=== PATIENT | male | born 1930 | race Caucasian/White ===

== ENCOUNTER 2016-08-20 01:16 | Inpatient (IN) | payer MEDICARE, OTHER ==
[2016-08-20] MEDS ORDERED: Albuterol/Ipratropium 3.0-0.5 MG/3 ML Neb Soln NEB ONE (01:40)
[2016-08-20] MEDS ORDERED: methylPREDNISolone Sodium Succinate 125 MG/2 ML SDV IVPUSH ONE (01:41)
[2016-08-20] MEDS ORDERED: Albuterol 0.083% 2.5 MG/3 ML Neb Soln NEB STA (02:14)
[2016-08-20] MEDS ORDERED: Albuterol 0.083% 2.5 MG/3 ML Neb Soln ONE (02:18)
[2016-08-20] MEDS ORDERED: Furosemide 40 MG/4 ML VIAL IVPUSH ONE (02:42)
[2016-08-20] MEDS ORDERED: Furosemide 40 MG/4 ML VIAL ONE (02:45)
--- NOTE | 2016-08-20 02:45 | EDM.PDOC ---
ED HPI GENERAL MEDICAL PROBLEM - General Chief Complaint: Respiratory Problem Stated Complaint: [facility] Time Seen by Provider: 08/20/16 01:36 Source of Information: Reports: Patient, EMS, Correction Records, RN Notes Reviewed History Limitations: Reports: Respiratory Distress - History of Present Illness INITIAL COMMENTS - FREE TEXT/NARRATIVE: The history is limited, as the patient is in respiratory distress and not able to communicate. The assisted living papers indicate "Decreased SpO2, increased BP, Fall". Report from EMS is that the patient was found on the floor. His records indicate that he has numerous medical problems, including a history of CHF and COPD. - Related Data Allergies Allergy/AdvReac Type Severity Reaction Status Date / Time No Known Allergies Allergy Verified 08/20/16 01:31 Home Meds: Home Meds Allopurinol [Zyloprim] 300 mg PO DAILY 08/20/16 [History] Aspirin [Adult Low Dose Aspirin EC] 81 mg PO DAILY 08/20/16 [History] Calcitriol [Rocaltrol] 0.25 mcg PO DAILY 08/20/16 [History] Canagliflozin [Invokana] 150 mg PO DAILY 08/20/16 [History] Carvedilol [Coreg] 12.5 mg PO BID 08/20/16 [History] Finasteride [Proscar] 5 mg PO DAILY 08/20/16 [History] Furosemide [Lasix] 40 mg PO DAILY 08/20/16 [History] Insulin NPH/Insulin Reg,Human [HumuLIN 70-30 Pen] 14 units SUBCUT BEDTIME [History] Insulin NPH/Insulin Reg,Human [HumuLIN 70-30 Pen] 22 units SUBCUT DAILY [History] Losartan [Cozaar] 50 mg PO DAILY 08/20/16 [History] Simvastatin 40 mg PO DAILY 08/20/16 [History] Past Medical History HEENT History: Reports: Cataract, Impaired Vision Cardiovascular History: Reports: Heart Failure, High Cholesterol, Other (See Below) (Cerebrovascular disease) Respiratory History: Reports: COPD, Sleep Apnea (nightly COPD) Genitourinary History: Reports: BPH, Chronic Renal Insuffiency Musculoskeletal History: Reports: Gout Neurological History: Reports: Neuropathy, Diabetic Psychiatric History: 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 Endocrine/Metabolic History: Reports: Hyperparathyroidism, IDDM, Obesity/BMI 30+ Social & Family History - Tobacco Use Smoking Status *Q: Former Smoker Used Tobacco, but Quit: No - Caffeine Use Caffeine Use: Reports: Coffee, Soda - Alcohol Use Alcohol Use History: No - Recreational Drug Use Recreational Drug Use: No - Living Situation & Occupation Living situation: Reports: , Assisted Living ([place]) Occupation: Retired ED ROS GENERAL - Review of Systems Review Of Systems: See Below Constitutional: Reports: No Symptoms HEENT: Reports: No Symptoms Respiratory: Reports: No Symptoms Cardiovascular: Reports: No Symptoms Endocrine: Reports: No Symptoms GI/Abdominal: Reports: No Symptoms : Reports: No Symptoms Musculoskeletal: Reports: No Symptoms Skin: Reports: No Symptoms Neurological: Reports: No Symptoms Psychiatric: Reports: No Symptoms Hematologic/Lymphatic: Reports: No Symptoms Immunologic: Reports: No Symptoms ED EXAM, GENERAL - Physical Exam Exam: See Below Exam Limited By: Respiratory Distress General Appearance: Alert, WD/WN, Moderate Distress Eye Exam: Bilateral Eye: Other (Edema about both eyes) Ears: Normal External Exam, Hearing Grossly Normal Ear Exam: Bilateral Ear: Auricle Normal Nose: Normal Inspection, No Blood Throat/Mouth: Normal Inspection, Normal Lips Head: Atraumatic, Normocephalic Neck: Normal Inspection Respiratory/Chest: No Accessory Muscle Use, Respiratory Distress (Tachypneic in the mid-40s), Decreased Breath Sounds. No: Crackles, Rhonchi, Wheezing Cardiovascular: Normal Peripheral Pulses, No Gallop, No JVD, No Murmur, No Rub, Tachycardia (regular) Peripheral Pulses: 4+: Radial (L), Radial (R) GI/Abdominal: Normal Bowel Sounds, Soft, Non-Tender, No Organomegaly, No Distention, No Abnormal Bruit, No Mass, Other (Obese) (Male) Exam: Deferred Rectal (Males) Exam: Deferred Back Exam: Normal Inspection Extremities: Normal Capillary Refill, Other (3+ pitting edema pretibially bilaterally, with hyperpigmentation consistent with chronic venous stasis) Neurological: Alert, Other (Unable to adequately assess, given the patient's respiratory difficulty, but no obvious focal deficits noted) Psychiatric: Other Skin Exam: Intact, No Rash, Cool, Diaphoretic, Ecchymosis EKG INTERPRETATION EKG Date: 08/20/16 Time: 02:09 Rhythm: other (Sinus tachycardia) Rate (beats/min): 108 [place]: normal P-wave: absent (1st degree AV block) QRS: wide ST-T: other (J-point elevation in V2, V3, V4) QT: prolonged (QTc 522 ms) Course - Vital Signs Last Recorded V/S: Last Vital Signs Temp 37.0 C 08/20/16 01:19 Pulse 114 H 08/20/16 01:19 Resp 21 H 08/20/16 01:19 BP 150/101 H 08/20/16 01:19 Pulse Ox 90 L 08/20/16 02:18 - Orders/Labs/Meds Orders: Active Orders 24 hr Category Date Time Status BIPAP Adult [RT BiPAP/CPAP] [RC] ASDIRECTED Care 08/20/16 02:47 Active EKG Documentation Completion [RC] STAT Care 08/20/16 01:45 Active Farias Catheter Insertion [Insert Urinary Catheter] [OM. Care 08/20/16 03:00 Ordered PC] Q24H RT Aerosol Therapy [RC] ASDIRECTED Care 08/20/16 01:41 Active RT Aerosol Therapy [RC] ASDIRECTED Care 08/20/16 02:15 Active Urinary Catheter Assessment [RC] ASDIRECTED Care 08/20/16 02:46 Active Chest 1V Frontal [CR] Stat Exams 08/20/16 01:45 Taken CBC W/O DIFF,HEMOGRAM [HEME] MOTH@0700 Lab 08/23/16 07:00 Ordered CBC W/O DIFF,HEMOGRAM [HEME] MOTH@0700 Lab 08/26/16 07:00 Ordered CBC W/O DIFF,HEMOGRAM [HEME] MOTH@0700 Lab 08/30/16 07:00 Ordered CBC W/O DIFF,HEMOGRAM [HEME] MOTH@0700 Lab 09/02/16 07:00 Ordered CBC W/O DIFF,HEMOGRAM [HEME] MOTH@0700 Lab 09/06/16 07:00 Ordered CBC W/O DIFF,HEMOGRAM [HEME] MOTH@0700 Lab 09/09/16 07:00 Ordered CULTURE BLOOD [BC] Stat Lab 08/20/16 03:39 Received CULTURE BLOOD [BC] Stat Lab 08/20/16 03:51 Received Labs: Laboratory Tests 08/20/16 08/20/16 08/20/16 Range/Units 01:45 01:54 01:54 WBC 17.10 H (4.23-9.07) K/mm3 RBC 7.38 H (4.63-6.08) M/mm3 Hgb 20.9 H (13.7-17.5) gm/L Hct 65.6 H (40.1-51.0) % MCV 88.9 (79.0-92.2) fl MCH 28.3 (25.7-32.2) pg MCHC 31.9 L (32.2-35.5) g/dl RDW Std Deviation 56.6 H (35.1-43.9) fL Plt Count 133 L (163-337) K/mm3 MPV 9.9 (9.4-12.3) fl Neutrophils % (Manual) 88 H (40-60) % Band Neutrophils % 9 (0-10) % Lymphocytes % (Manual) 2 L (20-40) % Atypical Lymphs % 0 % Monocytes % (Manual) 1 L (2-10) % Eosinophils % (Manual) 0 L (0.8-7.0) % Basophils % (Manual) 0 L (0.2-1.2) Metamyelocytes % 0 Promyelocytes % 0 Blast Cells % 0 Plasma Cell % (Manual) 0 WBC Morphology Comment [employer] Platelet Estimate Adequate Anisocytosis 1+ slight RBC Morph Comment Not Reportable PT (8.0-13.0) SECONDS INR APTT (22-36) SECONDS D-Dimer, Quantitative (0.19-0.59) mg/L Puncture Site Rt radial ABG pH 7.24 L (7.35-7.45) ABG pCO2 64.2 H (35.0-45.0) mmHg ABG pO2 69.0 L (80.0-100.0) mmHg ABG HCO3 26.7 H (22.0-26.0) meq/L ABG O2 Saturation 91.2 L (96.0-97.0) % ABG Base Excess -3.2 L (-2-2.0) Pratik Test Positive A-a Gradient 427 mmHg O2 Delivery Device Nonrebreather Oxygen Flow Rate 10.0 FiO2 90.00 (21.00-100.00) % Tidal Volume cc Sodium 140 (136-145) mEq/L Potassium 4.3 (3.5-5.1) mEq/L Chloride 103 (98-107) mEq/L Carbon Dioxide 26 (21-32) mEq/L Anion Gap 15.3 H (5-15) BUN 44 H (7-18) mg/dL Creatinine 1.9 H (0.7-1.3) mg/dL Est Cr Clr Drug Dosing 21.55 mL/min Estimated GFR (MDRD) 34 (>60) mL/min BUN/Creatinine Ratio 23.2 H (14-18) Glucose 181 H (83-115) mg/dL Lactic Acid (0.4-2.0) mmol/L Calcium 9.6 (8.5-10.1) mg/dL Magnesium 2.1 (1.8-2.4) mg/dl Total Bilirubin 0.8 (0.2-1.0) mg/dL AST 40 H (15-37) U/L ALT 32 (16-63) U/L Alkaline Phosphatase 93 (46-116) U/L Troponin I 1.130 H* (0.00-0.056) ng/mL B-Natriuretic Peptide (0-100) pg/mL Total Protein 7.3 (6.4-8.2) g/dl Albumin 3.6 (3.4-5.0) g/dl Globulin 3.7 gm/dL Albumin/Globulin Ratio 1.0 (1-2) Urine Color (Yellow) Urine Appearance (Clear) Urine pH (5.0-8.0) Ur Specific [place] (1.005-1.030) Urine Protein (Negative) Urine Glucose (UA) (Negative) Urine Ketones (Negative) Urine Occult Blood (Negative) Urine Nitrite (Negative) Urine Bilirubin (Negative) Urine Urobilinogen (0.2-1.0) Ur Leukocyte Esterase (Negative) Urine RBC (0-5) /hpf Urine WBC (0-5) /hpf Ur Epithelial Cells Ur Squamous Epith Cells (0-5) /hpf Urine Bacteria (FEW) /hpf Urine Mucus (FEW) /hpf 08/20/16 08/20/16 08/20/16 Range/Units 01:54 01:54 01:54 WBC (4.23-9.07) K/mm3 RBC (4.63-6.08) M/mm3 Hgb (13.7-17.5) gm/L Hct (40.1-51.0) % MCV (79.0-92.2) fl MCH (25.7-32.2) pg MCHC (32.2-35.5) g/dl RDW Std Deviation (35.1-43.9) fL Plt Count (163-337) K/mm3 MPV (9.4-12.3) fl Neutrophils % (Manual) (40-60) % Band Neutrophils % (0-10) % Lymphocytes % (Manual) (20-40) % Atypical Lymphs % % Monocytes % (Manual) (2-10) % Eosinophils % (Manual) (0.8-7.0) % Basophils % (Manual) (0.2-1.2) Metamyelocytes % Promyelocytes % Blast Cells % Plasma Cell % (Manual) WBC Morphology Comment Platelet Estimate Anisocytosis RBC Morph Comment PT 14.7 H (8.0-13.0) SECONDS INR 1.32 APTT 28 (22-36) SECONDS D-Dimer, Quantitative 5.74 H (0.19-0.59) mg/L Puncture Site ABG pH (7.35-7.45) ABG pCO2 (35.0-45.0) mmHg ABG pO2 (80.0-100.0) mmHg ABG HCO3 (22.0-26.0) meq/L ABG O2 Saturation (96.0-97.0) % ABG Base Excess (-2-2.0) Pratik Test A-a Gradient mmHg O2 Delivery Device Oxygen Flow Rate FiO2 (21.00-100.00) % Tidal Volume cc Sodium (136-145) mEq/L Potassium (3.5-5.1) mEq/L Chloride (98-107) mEq/L Carbon Dioxide (21-32) mEq/L Anion Gap (5-15) BUN (7-18) mg/dL Creatinine (0.7-1.3) mg/dL Est Cr Clr Drug Dosing mL/min Estimated GFR (MDRD) (>60) mL/min BUN/Creatinine Ratio (14-18) Glucose (83-115) mg/dL Lactic Acid 2.4 H (0.4-2.0) mmol/L Calcium (8.5-10.1) mg/dL Magnesium (1.8-2.4) mg/dl Total Bilirubin (0.2-1.0) mg/dL AST (15-37) U/L ALT (16-63) U/L Alkaline Phosphatase (46-116) U/L Troponin I (0.00-0.056) ng/mL B-Natriuretic Peptide 485 H (0-100) pg/mL Total Protein (6.4-8.2) g/dl Albumin (3.4-5.0) g/dl Globulin gm/dL Albumin/Globulin Ratio (1-2) Urine Color (Yellow) Urine Appearance (Clear) Urine pH (5.0-8.0) Ur Specific [place] (1.005-1.030) Urine Protein (Negative) Urine Glucose (UA) (Negative) Urine Ketones (Negative) Urine Occult Blood (Negative) Urine Nitrite (Negative) Urine Bilirubin (Negative) Urine Urobilinogen (0.2-1.0) Ur Leukocyte Esterase (Negative) Urine RBC (0-5) /hpf Urine WBC (0-5) /hpf Ur Epithelial Cells Ur Squamous Epith Cells (0-5) /hpf Urine Bacteria (FEW) /hpf Urine Mucus (FEW) /hpf 08/20/16 08/20/16 Range/Units 02:54 03:34 WBC (4.23-9.07) K/mm3 RBC (4.63-6.08) M/mm3 Hgb (13.7-17.5) gm/L Hct (40.1-51.0) % MCV (79.0-92.2) fl MCH (25.7-32.2) pg MCHC (32.2-35.5) g/dl RDW Std Deviation (35.1-43.9) fL Plt Count (163-337) K/mm3 MPV (9.4-12.3) fl Neutrophils % (Manual) (40-60) % Band Neutrophils % (0-10) % Lymphocytes % (Manual) (20-40) % Atypical Lymphs % % Monocytes % (Manual) (2-10) % Eosinophils % (Manual) (0.8-7.0) % Basophils % (Manual) (0.2-1.2) Metamyelocytes % Promyelocytes % Blast Cells % Plasma Cell % (Manual) WBC Morphology Comment Platelet Estimate Anisocytosis RBC Morph Comment PT (8.0-13.0) SECONDS INR APTT (22-36) SECONDS D-Dimer, Quantitative (0.19-0.59) mg/L Puncture Site Rt radial ABG pH 7.29 L (7.35-7.45) ABG pCO2 54.2 H (35.0-45.0) mmHg ABG pO2 80.0 (80.0-100.0) mmHg ABG HCO3 25.4 (22.0-26.0) meq/L ABG O2 Saturation 95.6 L (96.0-97.0) % ABG Base Excess -2.4 L (-2-2.0) Pratik Test Positive A-a Gradient 493 mmHg O2 Delivery Device Bipap 10/4 Oxygen Flow Rate FiO2 100.00 (21.00-100.00) % Tidal Volume 390.0 cc Sodium (136-145) mEq/L Potassium (3.5-5.1) mEq/L Chloride (98-107) mEq/L Carbon Dioxide (21-32) mEq/L Anion Gap (5-15) BUN (7-18) mg/dL Creatinine (0.7-1.3) mg/dL Est Cr Clr Drug Dosing mL/min Estimated GFR (MDRD) (>60) mL/min BUN/Creatinine Ratio (14-18) Glucose (83-115) mg/dL Lactic Acid (0.4-2.0) mmol/L Calcium (8.5-10.1) mg/dL Magnesium (1.8-2.4) mg/dl Total Bilirubin (0.2-1.0) mg/dL AST (15-37) U/L ALT (16-63) U/L Alkaline Phosphatase (46-116) U/L Troponin I (0.00-0.056) ng/mL B-Natriuretic Peptide (0-100) pg/mL Total Protein (6.4-8.2) g/dl Albumin (3.4-5.0) g/dl Globulin gm/dL Albumin/Globulin Ratio (1-2) Urine Color Yellow (Yellow) Urine Appearance Clear (Clear) Urine pH 5.5 (5.0-8.0) Ur Specific [place] 1.015 (1.005-1.030) Urine Protein 2+ H (Negative) Urine Glucose (UA) 2+ H (Negative) Urine Ketones Negative (Negative) Urine Occult Blood Negative (Negative) Urine Nitrite Negative (Negative) Urine Bilirubin Negative (Negative) Urine Urobilinogen 0.2 (0.2-1.0) Ur Leukocyte Esterase Negative (Negative) Urine RBC Not seen (0-5) /hpf Urine WBC 0-5 (0-5) /hpf Ur Epithelial Cells Not Reportable Ur Squamous Epith Cells 0-5 (0-5) /hpf Urine Bacteria Not seen (FEW) /hpf Urine Mucus Few (FEW) /hpf Meds: Medications Discontinued Medications Generic Name Dose Route Start Last Admin Trade Name Freq PRN Reason Stop Dose Admin Albuterol 2.5 mg 08/20/16 02:14 08/20/16 02:17 Proventil Neb Soln NEB 08/20/16 02:15 2.5 mg ONETIME STA Administration Albuterol Confirm 08/20/16 02:18 08/20/16 03:01 Proventil Neb Soln Administered 08/20/16 02:19 Not Given Dose 2.5 mg .ROUTE .STK-MED ONE Albuterol/Ipratropium 3 ml 08/20/16 01:40 08/20/16 01:50 Duoneb 3.0-0.5 Mg/3 Ml [facility] 08/20/16 01:41 3 ml ONETIME ONE Administration Enoxaparin Sodium 100 mg 08/20/16 02:52 08/20/16 03:01 Lovenox SUBCUT 08/20/16 02:53 100 mg ONETIME ONE Administration Furosemide 40 mg 08/20/16 02:42 08/20/16 02:44 Lasix IVPUSH 08/20/16 02:43 40 mg NOW ONE Administration Furosemide Confirm 08/20/16 02:45 08/20/16 02:58 Lasix Administered 08/20/16 02:46 Not Given Dose 40 mg .ROUTE .STK-MED ONE Levofloxacin/Dextrose 500 mg/ 100 mls @ 100 mls/hr 08/20/16 03:06 08/20/16 03 :46 Premix IV 08/20/16 04:05 100 mls/hr ONETIME ONE Administration Methylprednisolone Sodium Succinate 125 mg 08/20/16 01:41 08/20/16 01:45 Solu-Medrol IVPUSH 08/20/16 01:42 125 mg ONETIME ONE Administration - Radiology Interpretation Free Text/Narrative:: Portable chest radiograph reviewed. There is cardiomegaly. There is pulmonary vascular congestion, consistent with compensated CHF. No pleural effusions seen. No focal infiltrate, although cannot be excluded. No pneumothorax. Formal read per the Radiologist pending. - Re-Assessments/Exams Free Text/Narrative Re-Assessment/Exam: 08/20/16 02:44 The patient has received a DuoNeb followed by an albuterol neb treatment and is on a nonrebreather, however, his oxygen saturation is still in the mid-80s and he is still tachypneic in the mid-40s. The patient's portable chest radiograph suggests CHF exacerbation. I have ordered IV Lasix and we will try BiPAP to see if we can avoid intubation. 08/20/16 02:53 The patient's troponin has returned elevated at 1.130, and his D-dimer elevated at 5.74. The patient has renal dysfunction, with a creatinine of 1.9, which is a relative contraindication for a CT angiogram, but, additionally, I don't believe the patient is physically capable of lying flat for a CT angiogram at this time, as he is still in respiratory extremis. I have therefore ordered Lovenox 100 mg SQ. 08/20/16 02:58 The patient's BNP is only mildly elevated at 485, not consistent with substantial CHF decompensation. We will see how well the patient does on the BiPAP, however, it if he does not improve fairly quickly, I will need to intubate him. In the meantime, I will start the patient on IV Levaquin, as I cannot exclude pneumonia. 08/20/16 03:33 The patient's daughter has come to the ED. The patient's case was discussed at length with her. She is not aware of any recent illnesses in the patient. We' re in agreement that we would like to avoid intubating the patient, if at all possible. I will check an ABG to see if he is making progress on the BiPAP. 08/20/16 04:20 The patient's repeat ABG shows modest improvement. Again, given that we are reluctant to intubate the patient, I believe that as long as he continues to make improvement, we can avoid intubation. 08/20/16 04:[address] Gurrola at 04:21. He agrees to admit the patient to the ICU. I will write bridge orders. Departure - Departure Time of Disposition: 04:24 Disposition: DC/Tfer to Acute Hospital 02 Condition: serious Clinical Impression: Respiratory distress, Leukocytosis, Respiratory acidosis, Hypoxemia, Elevated troponin, Elevated d-dimer, Lactic acidosis - Discharge Information - My Orders Last 24 Hours: My Active Orders 08/20/16 01:41 RT Aerosol Therapy [RC] ASDIRECTED 08/20/16 01:45 EKG Documentation Completion [RC] STAT Chest 1V Frontal [CR] Stat 08/20/16 02:15 RT Aerosol Therapy [RC] ASDIRECTED 08/20/16 02:46 Urinary Catheter Assessment [RC] ASDIRECTED 08/20/16 02:47 BIPAP Adult [RT BiPAP/CPAP] [RC] ASDIRECTED 08/20/16 03:00 Farias Catheter Insertion [Insert Urinary Catheter] [OM.PC] Q24H 08/20/16 03:39 CULTURE BLOOD [BC] Stat 08/20/16 03:51 CULTURE BLOOD [BC] Stat 08/23/16 07:00 CBC W/O DIFF,HEMOGRAM [HEME] MOTH@0700 08/26/16 07:00 CBC W/O DIFF,HEMOGRAM [HEME] MOTH@0700 08/30/16 07:00 CBC W/O DIFF,HEMOGRAM [HEME] MOTH@0700 09/02/16 07:00 CBC W/O DIFF,HEMOGRAM [HEME] MOTH@0700 09/06/16 07:00 CBC W/O DIFF,HEMOGRAM [HEME] MOTH@0700 09/09/16 07:00 CBC W/O DIFF,HEMOGRAM [HEME] MOTH@0700 - Assessment/Plan Last 24 Hours: My Active Orders 08/20/16 01:41 RT Aerosol Therapy [RC] ASDIRECTED 08/20/16 01:45 EKG Documentation Completion [RC] STAT Chest 1V Frontal [CR] Stat 08/20/16 02:15 RT Aerosol Therapy [RC] ASDIRECTED 08/20/16 02:46 Urinary Catheter Assessment [RC] ASDIRECTED 08/20/16 02:47 BIPAP Adult [RT BiPAP/CPAP] [RC] ASDIRECTED 08/20/16 03:00 Farias Catheter Insertion [Insert Urinary Catheter] [OM.PC] Q24H 08/20/16 03:39 CULTURE BLOOD [BC] Stat 08/20/16 03:51 CULTURE BLOOD [BC] Stat 08/23/16 07:00 CBC W/O DIFF,HEMOGRAM [HEME] MOTH@69908/26/16 07:00 CBC W/O DIFF,HEMOGRAM [HEME] MOTH@69908/30/16 07:00 CBC W/O DIFF,HEMOGRAM [HEME] MOTH@69909/02/16 07:00 CBC W/O DIFF,HEMOGRAM [HEME] MOTH@69909/06/16 07:00 CBC W/O DIFF,HEMOGRAM [HEME] MOTH@69909/09/16 07:00 CBC W/O DIFF,HEMOGRAM [HEME] MOTH@699
[2016-08-20] MEDS ORDERED: Enoxaparin 100 MG/1 ML Syringe SUBCUT ONE (02:52)
[2016-08-20] MEDS ORDERED: Levofloxacin/Dextrose 5%-Water 500 MG in Premix Bag 1 BAG IV ONE (03:06)
[2016-08-20] MEDS ORDERED: Albuterol 0.5% 2.5 MG/0.5 ML Neb Soln NEB SCH (06:00)
--- NOTE | 2016-08-20 06:33 | PCM.HP ---
H&P History of Present Illness - General Date of Service: 08/20/16 Admit Problem/Dx: Admission Diagnosis/Problem Admission Diagnosis/Problem Respiratory distress Source of Information: Patient, Family, Old Records, Provider, RN Notes Reviewed History Limitations: Reports: Respiratory Distress - History of Present Illness Initial Comments - Free Text/Narative: This is an 86 yo elderly white male with past medical hx/o DM2, CKD with Unknown Stage, Gout, MOSER, Chronic Constipation, CHF with Unknown EF, HLD, Peripheral Neuropathy, COPD, Cerebral Vascular Disease, Hx/o Chronic Falls, CO2 Retention, MERCED on CPA and Morbid Obesity who was brought to ED for evaluation after he fell out of bed and was found to have low O2 sat at 76% on RA associated with difficulty breathing, malignant hypertension with a documented BP of 180/110 mmHg and an initial blood glucose of 145. His initial work up in ED shows, a CBC remarkable for WBC of 17.10, Hgb of 20.9 , Hct of 65.6, Platelet of 133, and Neutrophils of 88%. His chemistry is remarkable for AG of 15.3, BUN of 44, Cr of 1.9, BS of 181, LA of 2.4, AST of 40, Troponin of 1.130, BNP of 485, D-dimer of 5.74, PT of 14.7, and aPTT of 28. His ABG shows pH 7.29, pCO2 54.2, pO2 80 and O2 sat of 95.6. His CXR shows an enlarged heart with acute pulmonary congestion. Patient received initial treatment in ED before he was sent to the unit for further treatment. He is full code. - Related Data Allergies/Adverse Reactions: Allergies Allergy/AdvReac Type Severity Reaction Status Date / Time No Known Allergies Allergy Verified 08/20/16 01:31 Home Medications: Home Meds Allopurinol [Zyloprim] 300 mg PO DAILY 08/20/16 [History] Aspirin [Adult Low Dose Aspirin EC] 81 mg PO DAILY 08/20/16 [History] Calcitriol [Rocaltrol] 0.25 mcg PO DAILY 08/20/16 [History] Canagliflozin [Invokana] 150 mg PO DAILY 08/20/16 [History] Carvedilol [Coreg] 12.5 mg PO BID 08/20/16 [History] Cholecalciferol (Vitamin D3) [Vitamin D3] 1,000 units PO DAILY 08/20/16 [History ] Finasteride [Proscar] 5 mg PO DAILY 08/20/16 [History] Furosemide [Lasix] 40 mg PO DAILY 08/20/16 [History] Insulin NPH/Insulin Reg,Human [HumuLIN 70-30 Pen] 14 units SUBCUT BEDTIME [History] Insulin NPH/Insulin Reg,Human [HumuLIN 70-30 Pen] 22 units SUBCUT QAM 08/20/16 [ History] Losartan [Cozaar] 50 mg PO DAILY 08/20/16 [History] Simvastatin 40 mg PO DAILY 08/20/16 [History] Past Medical History HEENT History: Reports: Cataract, Impaired Vision Cardiovascular History: Reports: Heart Failure, High Cholesterol Respiratory History: Reports: COPD, Sleep Apnea Other Respiratory History: hx of C02 retention, uses CPAP at [facility], Gastrointestinal History: Reports: Chronic Constipation, Hemorrhoids Genitourinary History: Reports: BPH, Chronic Renal Insuffiency Musculoskeletal History: Reports: Gout Neurological History: Reports: Neuropathy, Diabetic Psychiatric History: 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 Endocrine/Metabolic History: Reports: Hyperparathyroidism, IDDM, Obesity/BMI 30+ Dermatologic History: Reports: Venous Stasis Dermatitis Social & Family History - Tobacco Use Smoking Status *Q: Former Smoker Used Tobacco, but Quit: Yes Month Tobacco Last Used: 20 - Caffeine Use Caffeine Use: Reports: Coffee, Soda - Recreational Drug Use Recreational Drug Use: No - Living Situation & Occupation Living situation: Reports: , Assisted Living ([facility]) Occupation: Retired H&P Review of Systems - Review of Systems: Review Of Systems: Unable To Obtain Free Text/Narrative: Patient is currently on NIPPV due to acute respiratory distress Review of Systems Comment:: Patient unable to provide. He is currently on BIPAP and very hard of hearing w/ o his hearing devices. Exam - Exam Exam: See Below - Vital Signs Vital Signs: Last Vital Signs Temp 36.6 C 08/20/16 05:00 Pulse 114 H 08/20/16 01:19 Resp 25 H 08/20/16 05:00 BP 99/74 08/20/16 05:00 Pulse Ox 97 08/20/16 06:08 Weight: 104.326 kg - Exam Quality Assessment: Supplemental Oxygen HEENT: Conjunctiva Clear, Pupils Equal, Pupils Reactive, Other (mild edema around eyes w/o any obvious sign of trauma ). No: Hearing Intact Neck: Supple, Trachea Midline, Other (short and thick). No: JVD Lungs: Decreased Breath Sounds. No: Normal Respiratory Effort Cardiovascular: Regular Rate, Regular Rhythm Abdomen: Normal Bowel Sounds, Soft, Organomegaly, Other (Obese). No: Peritoneal Signs, Distention, Guarding, Rigidity, Rebound, Tenderness (Male) Exam: Other (Indwelling morillo catheter) Rectal (Males) Exam: Deferred Back Exam: Normal Inspection, Decreased Range of Motion Extremities: Edema, Increased Warmth, Other (hyperpigmentation on b/l lower extremity) Peripheral Pulses: 1+: Dorsalis Pedis (L), Dorsalis Pedis (R) Skin: Warm, Dry, Intact Neuro Extensive - Motor, Sensory, Reflexes: CN II-XII Intact (very limited due to inability to follow commands (hard of hearing)), Normal Gait Psychiatric: Alert, Normal Affect, Normal Mood Physical Exam Comments:: Limited physical exam from being on BIPAP and very hard of hearing w/o hearing aids. - Patient Data Result Diagrams: 08/21/16 04:10 08/21/16 04:20 EKG INTERPRETATION EKG Date: 08/20/16 Time: 02:09 Rhythm: other (Sinus Tachycardia) Rate (beats/min): 108 [place]: normal QRS: wide QT: prolonged CA/PQ Interval: ALIDA prolonged *Q Meaningful Use (ADM) - VTE *Q VTE Criteria *Q: - Stroke *Q Stroke Criteria *Q: - AMI *Q AMI Criteria *Q: Problem List Initiated/Reviewed/Updated: Yes Orders Last 24hrs: Active Orders 24 hr Category Date Time Status Bedrest [RC] ASDIRECTED Care 08/20/16 05:23 Active Low Sodium [Sodium Restricted Diet] [DIET] Diet 08/20/16 Breakfast Active Albuterol [Proventil] Med 08/20/16 06:00 Active 2.5 mg NEB Q4HRRT Code Status [Resuscitation Status] Routine Resus Stat 08/20/16 05:23 Ordered Medication Orders Albuterol (Proventil) 2.5 mg NEB Q4HRRT PETER Last Admin: 08/20/16 06:05 Dose: 2.5 mg Assessment/Plan Comment:: Assessment/Plan: Acute: NSTEMI - Troponin is 1.30 - CE Q6 x 2 - ACS protocol - Received Lovenox SubQ in ED x1 ; pharmacy to monitor and start NSTEMI - May not benefit with PCI due to CKD Acute Pulmonary Congestion - BNP is 485 - CXR shows chest congestion - Likely due to NSTEMI - Has a hx/o HF with unknown EF - Received diuretics in ED - 2D echo today Respiratory Distress - Risk factors: MERCED, CO2 Retainer, COPD,HF, NSTEMI and Obesity - Unclear if he is compliant with his CPAP - Currently on BIPAP, initial ABG shows CO2 of 50 and O2 of 80 - He is full code, may need to intubate if he starts to decompensate Respiratory Acidosis - LA is 2.4 - This is hypoxemia not due to hypo-perfusion, vitals fairly stable - O2 sat of 76% [facility] - Continue to monitor - Continue BIPAP Elevated D-Dimer - Maybe falsely elevated due to Pulmonary Congestion and CKD - CTA is contraindicated due to CKD - Duplex U/S for Lower extremity - V/Q scan - Wells score is 1.5 Low probability of PE Leukocytocis - WBC is 17.10 - Likely 2/2 MERCED and Physiologic Stress - No signs of systemic infection - He is afebrile - He received IV Levaquin x 1 in ED - Will continue to monitor Polycythemia - Hgb is 20.9 - This is likely 2/2 MERCED and COPD Chronic: HLD DM2 COPD CO2 Retention CKD Stage 3-4 Gout MOSER MERCED on CPAP Chronic Constipation HF with Unknown EF Peripheral Neuropathy Cerebral Vascular Disease Hx/o Chronic Falls and Morbid Obesity Plan: Admit to ICU Routine AM Labs ACS protocol Resume Home Meds AHA/DM2 and low salt diet PT/OT/RT consult SW/CM for d/c planning Code status: Spoke to daughter and discussed his code status. She still wants patient to be full code. Family present at bedside were made aware about his critical condition. They know patient is high risk of a cardiac or respiratory failure/ arrest.
[2016-08-20] MEDS ORDERED: Acetaminophen/HYDROcodone 325-5 MG Tab PO PRN (06:43)
[2016-08-20] MEDS ORDERED: Ondansetron 4 MG/2 ML SDV IV PRN (06:43)
[2016-08-20] MEDS ORDERED: Docusate Sodium 100 MG Cap PO PRN (06:43)
[2016-08-20] MEDS ORDERED: Polyethylene Glycol 3350 Powder 17 GM Packet PO PRN (06:43)
[2016-08-20] MEDS ORDERED: LORazepam 2 MG/ML MDV IV PRN (06:43)
[2016-08-20] MEDS ORDERED: Promethazine 12.5 MG in Sodium Chloride 0.9% 50 ML IV PRN (06:43)
[2016-08-20] MEDS ORDERED: Temazepam 15 MG Cap PO PRN (06:43)
[2016-08-20] MEDS ORDERED: Acetaminophen 325 MG Tab PO PRN (06:43)
[2016-08-20] MEDS ORDERED: Bisacodyl 5 MG Tab PO PRN (06:43)
[2016-08-20] MEDS ORDERED: HYDROmorphone 0.5 MG/0.5 ML Syringe IVPUSH PRN (07:00)
[2016-08-20] MEDS ORDERED: Allopurinol 300 MG Tab PO SCH (09:00)
[2016-08-20] MEDS ORDERED: Aspirin 81 MG Tab.EC PO SCH (09:00)
[2016-08-20] MEDS ORDERED: Enoxaparin 40 MG/0.4 ML Syringe SUBCUT SCH (09:00)
[2016-08-20] MEDS: Insulin NPH/Insulin Regular,Human 70-30 100 Units/ML 10 ML Vial SUBCUT SCH (10:00)
[2016-08-20] MEDS: Furosemide 40 MG Tab PO SCH (10:03)
[2016-08-20] MEDS: Finasteride 5 MG Tab PO SCH (10:03)
[2016-08-20] MEDS: Calcitriol 0.25 MCG Cap PO SCH (10:03)
[2016-08-20] MEDS: Aspirin 81 MG Tab.EC PO SCH (10:04)
[2016-08-20] MEDS: Cholecalciferol (Vitamin D3) 1,000 Unit Tab PO SCH (10:04)
[2016-08-20] MEDS: Albuterol 0.083% 2.5 MG/3 ML Neb Soln NEB SCH ×4 (10:05→22:45)
--- NOTE | 2016-08-20 10:07 | CR ---
Chest: Frontal view of the chest was obtained. Comparison: Previous chest x-ray of 11/17/12. Heart is enlarged. Pulmonary vessels are congested. Mild scattered areas of atelectasis is seen. Bony structures are grossly intact. Impression: 1. Findings compatible with CHF. Diagnostic code #3
[2016-08-20] MEDS: Carvedilol 12.5 MG Tab PO SCH ×3 (10:16→20:24)
[2016-08-20] MEDS: Losartan 25 MG Tab PO SCH (10:17)
[2016-08-20] MEDS: CANAGLIFLOZIN 150 MG PO SCH (10:17)
--- NOTE | 2016-08-20 11:16 | NM ---
Ventilation/perfusion lung scan Technique: 2.03 mCi of technetium 99m MAA was given intravenously. Scintigraphic imaging then obtained over the lung pavon. During the exam, 40 mCi of technetium 99m DTPA was aerosolized and continued scintigraphic imaging was performed. Comparison: Previous chest x-ray performed earlier on the same day. Findings: Minimal areas of diminished perfusion are seen. Findings appear to be matched on the ventilation study. Findings felt to have a low probability for pulmonary embolism. Impression: 1. Low probability for pulmonary embolism. Diagnostic code #2
--- NOTE | 2016-08-20 12:23 | US ---
Bilateral lower extremity deep venous ultrasound: Duplex and color flow imaging was obtained of the right and left common femoral, proximal greater saphenous, superficial femoral, popliteal, posterior tibial and peroneal veins. Findings: Mild soft tissue edema seen within the subcutaneous tissues of the right lower extremity. Normal phasic flow, augmentation and compression str seen. Impression: 1. No evidence of deep venous thrombosis is seen within either the right or left lower extremity. 2. Mild subcutaneous edema seen within the right lower extremity. Diagnostic code #2
[2016-08-20] MEDS ORDERED: Furosemide 100 MG in Sodium Chloride 0.9% 90 ML IV SCH (12:45)
[2016-08-20] MEDS ORDERED: diphenhydrAMINE 50 MG/ML SDV IVPUSH ONE (16:30)
[2016-08-20] MEDS ORDERED: Simvastatin 40 MG Tab PO SCH (21:00)
[2016-08-20] MEDS ORDERED: Insulin NPH/Insulin Regular,Human 70-30 100 Units/ML 10 ML Vial SUBCUT SCH (21:00)
[2016-08-20] MEDS ORDERED: Ziprasidone HCl 20 MG Cap PO PRN (23:00)
[2016-08-20] MEDS ORDERED: Haloperidol Lactate 5 MG/ML SDV IVPUSH PRN (23:07)
[2016-08-20] MEDS ORDERED: Bumetanide 1 MG/4 ML MDV IVPUSH ONE (23:16)
--- NOTE | 2016-08-20 23:41 | PCM.SN ---
- Free Text/Narrative Note: Patient was restless and agitated trying to pull his BIPAP. He also appeared confused. He has gotten Ativan and Benadryl late afternoon-early evening. His repeat ABG shows much improved CO2 but his O2 is now at 47 (80 earlier). Patient was switched to CPAP and he is doing much better. Geodon 20 mg po PRN HS for agitation (we have no IM, only oral). Haldol low dose at 0.25 mg IV Q6 PRN for Agitation and Restlessness.
[2016-08-21] MEDS: Albuterol 0.083% 2.5 MG/3 ML Neb Soln NEB SCH ×4 (02:14→13:56)
[2016-08-21] MEDS ORDERED: Enoxaparin 100 MG/1 ML Syringe SUBCUT SCH ×2 (06:00→09:00)
[2016-08-21] MEDS ORDERED: Morphine 2 MG/ML Syringe IVPUSH PRN (07:40)
[2016-08-21] MEDS: Insulin NPH/Insulin Regular,Human 70-30 100 Units/ML 10 ML Vial SUBCUT SCH (09:18)
[2016-08-21] MEDS: Carvedilol 12.5 MG Tab PO SCH (09:19)
[2016-08-21] MEDS: Furosemide 40 MG Tab PO SCH (09:19)
[2016-08-21] MEDS: Aspirin 81 MG Tab.EC PO SCH (09:19)
[2016-08-21] MEDS: Losartan 25 MG Tab PO SCH (09:19)
[2016-08-21] MEDS: Cholecalciferol (Vitamin D3) 1,000 Unit Tab PO SCH (09:20)
[2016-08-21] MEDS: CANAGLIFLOZIN 150 MG PO SCH (09:20)
[2016-08-21] MEDS: Finasteride 5 MG Tab PO SCH (09:20)
[2016-08-21] MEDS: Calcitriol 0.25 MCG Cap PO SCH (10:12)
[2016-08-21] MEDS ORDERED: Azithromycin 500 MG in Sodium Chloride 0.9% 250 ML IV SCH (11:00)
--- NOTE | 2016-08-21 11:15 | CR ---
Chest: Portable view of the chest is obtained. Comparison: Previous chest x-ray of 08/20/16. Heart is enlarged. Mild areas of atelectasis are seen with the left upper and left midlung as well as right mid lung. Pulmonary vessels are congested which appear improved from prior exam. Current findings may be close to baseline. Bony structures are grossly intact. Impression: 1. Chest is felt to be slightly improved from prior exam with decreased pulmonary vascular congestion. 2. Mild areas of increased atelectasis is noted. Diagnostic code #3
--- NOTE | 2016-08-21 11:36 | PCM.PN ---
- General Info Date of Service: 08/21/16 Admission Dx/Problem (Free Text): Admission Diagnosis/Problem Admission Diagnosis/Problem Respiratory distress Subjective Update: Follow Up Functional Status: Reports: pain controlled, urinating. Denies: ambulating, new symptoms - Review of Systems General: Reports: Other (He is currently on CPAP. He tries to talk but could not understand him very well.). Denies: Fever, Malaise HEENT: Reports: no symptoms Pulmonary: Reports: shortness of breath Cardiovascular: Reports: Dyspnea on Exertion, Edema. Denies: No Symptoms, Chest Pain Gastrointestinal: Denies: Abdominal pain, Nausea, Vomiting Genitourinary: Reports: no symptoms Musculoskeletal: Reports: no symptoms Skin: Reports: no symptoms Neurological: Reports: Confusion, Gait Disturbance. Denies: Difficulty Walking , Weakness Psychiatric: Denies: confusion, agitation, hallucinations, homicidal ideation Systems Review Comment:: He had a very rough night. He was restless and combative. I was here until mid- night trying to get him comfortable and breath better. 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 His labs this morning are way worse then yesterday. His telemetry were showing signs of cardiac instability. Again, family was warned about these red flags and the likelihood of an impending . - Patient Data Vitals - most recent: Last Vital Signs Temp 37.1 C 08/21/16 08:00 Pulse 94 08/21/16 09:00 Resp 29 H 08/21/16 09:00 BP 103/68 08/21/16 09:00 Pulse Ox 96 08/21/16 09:00 Weight - most recent: 104.9 kg I&O - last 24 hours: Intake & Output 08/20/16 08/21/16 08/21/16 22:59 06:59 14:59 Intake Total 235 45 240 Output Total 150 342 260 Balance 85 -297 -20 Lab Results last 24 hrs: Laboratory Results - last 24 hr 08/20/16 08/21/16 08/21/16 Range/Units 22:25 04:10 04:20 WBC 25.28 H (4.23-9.07) K/mm3 RBC 6.69 H (4.63-6.08) M/mm3 Hgb 19.1 H (13.7-17.5) gm/L Hct 64.6 H (40.1-51.0) % MCV 89.8 (79.0-92.2) fl MCH 28.6 (25.7-32.2) pg MCHC 31.8 L (32.2-35.5) g/dl RDW Std Deviation 57.5 H (35.1-43.9) fL Plt Count 134 L (163-337) K/mm3 MPV 10.2 (9.4-12.3) fl Neut % (Auto) 88.9 H (34.0-67.9) % Lymph % (Auto) 5.7 L (21.8-53.1) % [place] % (Auto) 4.8 L (5.3-12.2) % Eos % (Auto) 0 L (0.8-7.0) Baso % (Auto) 0.1 (0.1-1.2) % Neut # (Auto) 22.47 H (1.78-5.38) K/mm3 Lymph # (Auto) 1.45 (1.32-3.57) K/mm3 [place] # (Auto) 1.21 H (0.30-0.82) K/mm3 Eos # (Auto) 0.00 L (0.04-0.54) K/mm3 Baso # (Auto) 0.02 (0.01-0.08) K/mm3 Manual Slide Review Abnormal smear Puncture Site Rt radial ABG pH 7.30 L (7.35-7.45) ABG pCO2 49.2 H (35.0-45.0) mmHg ABG pO2 47.0 L (80.0-100.0) mmHg ABG HCO3 23.4 (22.0-26.0) meq/L ABG O2 Saturation 81.9 L (96.0-97.0) % ABG Base Excess -3.5 L (-2-2.0) A-a Gradient 173 mmHg O2 Delivery Device Cannula Oxygen Flow Rate 6.0 FiO2 100.00 (21.00-100.00) % Sodium 140 (136-145) mEq/L Potassium 5.0 (3.5-5.1) mEq/L Chloride 105 (98-107) mEq/L Carbon Dioxide 25 (21-32) mEq/L Anion Gap 15.0 (5-15) BUN 61 H (7-18) mg/dL Creatinine 2.6 H (0.7-1.3) mg/dL Est Cr Clr Drug Dosing 15.75 mL/min Estimated GFR (MDRD) 24 (>60) mL/min BUN/Creatinine Ratio 23.5 H (14-18) Glucose 195 H (83-115) mg/dL Calcium 9.2 (8.5-10.1) mg/dL Magnesium 2.3 (1.8-2.4) mg/dl Troponin I 36.324 H* (0.00-0.056) ng/mL C-Reactive Protein (<1.0) mg/dL B-Natriuretic Peptide (0-100) pg/mL 08/21/16 08/21/16 Range/Units 04:20 05:20 WBC (4.23-9.07) K/mm3 RBC (4.63-6.08) M/mm3 Hgb (13.7-17.5) gm/L Hct (40.1-51.0) % MCV (79.0-92.2) fl MCH (25.7-32.2) pg MCHC (32.2-35.5) g/dl RDW Std Deviation (35.1-43.9) fL Plt Count (163-337) K/mm3 MPV (9.4-12.3) fl Neut % (Auto) (34.0-67.9) % Lymph % (Auto) (21.8-53.1) % [place] % (Auto) (5.3-12.2) % Eos % (Auto) (0.8-7.0) Baso % (Auto) (0.1-1.2) % Neut # (Auto) (1.78-5.38) K/mm3 Lymph # (Auto) (1.32-3.57) K/mm3 [place] # (Auto) (0.30-0.82) K/mm3 Eos # (Auto) (0.04-0.54) K/mm3 Baso # (Auto) (0.01-0.08) K/mm3 Manual Slide Review Puncture Site ABG pH (7.35-7.45) ABG pCO2 (35.0-45.0) mmHg ABG pO2 (80.0-100.0) mmHg ABG HCO3 (22.0-26.0) meq/L ABG O2 Saturation (96.0-97.0) % ABG Base Excess (-2-2.0) A-a Gradient mmHg O2 Delivery Device Oxygen Flow Rate FiO2 (21.00-100.00) % Sodium (136-145) mEq/L Potassium (3.5-5.1) mEq/L Chloride (98-107) mEq/L Carbon Dioxide (21-32) mEq/L Anion Gap (5-15) BUN (7-18) mg/dL Creatinine (0.7-1.3) mg/dL Est Cr Clr Drug Dosing mL/min Estimated GFR (MDRD) (>60) mL/min BUN/Creatinine Ratio (14-18) Glucose (83-115) mg/dL Calcium (8.5-10.1) mg/dL Magnesium (1.8-2.4) mg/dl Troponin I (0.00-0.056) ng/mL C-Reactive Protein 23.2 H* (<1.0) mg/dL B-Natriuretic Peptide 2144 H (0-100) pg/mL Med Orders - Current: Current Medications Acetaminophen (Tylenol) 650 mg PO Q4H PRN PRN Reason: Pain (Mild 1-3)/fever Hydrocodone Bitart/Acetaminophen ([place] 325-5 Mg) 1 tab PO Q4H PRN PRN Reason: Pain (moderate 4-6) Albuterol (Proventil Neb Soln) 2.5 mg NEB Q4HRRT [facility] Last Admin: 08/21/16 09:18 Dose: 2.5 mg Aspirin (Halfprin) 162 mg PO DAILY [facility] Last Admin: 08/21/16 09:19 Dose: Not Given Bisacodyl (Dulcolax) 5 mg PO DAILY PRN PRN Reason: Constipation Calcitriol (Rocaltrol) 0.25 mcg PO DAILY [facility] Last Admin: 08/21/16 10:12 Dose: Not Given Carvedilol (Coreg) 12.5 mg PO BID [facility] Last Admin: 08/21/16 09:19 Dose: Not Given Cholecalciferol (Vitamin D3) 1,000 units PO DAILY [facility] Last Admin: 08/21/16 09:20 Dose: Not Given Docusate Sodium (Colace) 100 mg PO BID PRN PRN Reason: Constipation Enoxaparin Sodium (Lovenox) 100 mg SUBCUT Q24H [facility] Last Admin: 08/21/16 10:11 Dose: 100 mg Finasteride (Proscar) 5 mg PO DAILY [facility] Last Admin: 08/21/16 09:20 Dose: Not Given Furosemide (Lasix) 40 mg PO DAILY [facility] Last Admin: 08/21/16 09:19 Dose: Not Given Haloperidol Lactate (Haldol) 0.25 mg IVPUSH Q6H PRN PRN Reason: Agitation Hydromorphone HCl (Dilaudid) 0.25 mg IVPUSH Q2H PRN PRN Reason: Pain (severe 7-10) Promethazine HCl 12.5 mg/ (Sodium Chloride) 50.5 mls @ 100 mls/hr IV Q6H PRN PRN Reason: Nausea/Vomiting Azithromycin 500 mg/ Sodium (Chloride) 250 mls @ 250 mls/hr IV Q24H [facility] Ceftriaxone Sodium 1 gm/ (Sodium Chloride) 100 mls @ 200 mls/hr IV Q24H [facility] Insulin Human Isoph/Insulin Regular (Novolin 70-30) 22 unit SUBCUT QAM [facility] Last Admin: 08/21/16 09:18 Dose: Not Given Insulin Human Isoph/Insulin Regular (Novolin 70-30) 14 unit SUBCUT BEDTIME [facility] Last Admin: 08/20/16 20:24 Dose: Not Given Lorazepam (Ativan) 0.5 mg IV Q6H PRN PRN Reason: Anxiety Last Admin: 08/20/16 20:25 Dose: 0.5 mg Losartan Potassium (Cozaar) 50 mg PO DAILY [facility] Last Admin: 08/21/16 09:19 Dose: Not Given Morphine Sulfate (Morphine) 1 mg IVPUSH Q2H PRN PRN Reason: restlessness Ondansetron HCl (Zofran) 4 mg IV Q6H PRN PRN Reason: Nausea/Vomiting Canagliflozin [ (Invokana] 150 Mg) 0 each PO DAILY [facility] Last Admin: 08/21/16 09:20 Dose: Not Given Polyethylene Glycol (Miralax) 17 gm PO DAILY PRN PRN Reason: Constipation Senna/Docusate Sodium (Senna Plus) 1 tab PO BID PRN PRN Reason: Constipation Simvastatin (Zocor) 40 mg PO BEDTIME [facility] Last Admin: 08/20/16 20:24 Dose: Not Given Temazepam (Restoril) 15 mg PO BEDTIME PRN PRN Reason: Sleep Ziprasidone (Geodon) 20 mg PO BEDTIME PRN PRN Reason: Agitation Discontinued Medications Albuterol (Proventil Neb Soln) 2.5 mg NEB ONETIME STA Stop: 08/20/16 02:15 Last Admin: 08/20/16 02:17 Dose: 2.5 mg Albuterol (Proventil Neb Soln) Confirm Administered Dose 2.5 mg .ROUTE .STK-MED ONE Stop: 08/20/16 02:19 Last Admin: 08/20/16 03:01 Dose: Not Given Albuterol (Proventil) 2.5 mg NEB Q4HRRT [facility] Last Admin: 08/20/16 06:05 Dose: 2.5 mg Albuterol/Ipratropium (Duoneb 3.0-0.5 Mg/3 Ml) 3 ml NEB ONETIME ONE Stop: 08/20/16 01:41 Last Admin: 08/20/16 01:50 Dose: 3 ml Allopurinol (Zyloprim) 300 mg PO DAILY [facility] Aspirin (Halfprin) 81 mg PO DAILY [facility] Bumetanide (Bumex) 1 mg IVPUSH ONETIME ONE Stop: 08/20/16 23:17 Last Admin: 08/21/16 00:49 Dose: 1 mg Diphenhydramine HCl (Benadryl) 50 mg IVPUSH ONETIME ONE Stop: 08/20/16 16:31 Last Admin: 08/20/16 16:38 Dose: 50 mg Enoxaparin Sodium (Lovenox) 100 mg SUBCUT ONETIME ONE Stop: 08/20/16 02:53 Last Admin: 08/20/16 03:01 Dose: 100 mg Enoxaparin Sodium (Lovenox) 40 mg SUBCUT Q12HR [facility]ER Enoxaparin Sodium (Lovenox) 100 mg SUBCUT Q24H [facility] Furosemide (Lasix) 40 mg IVPUSH NOW ONE Stop: 08/20/16 02:43 Last Admin: 08/20/16 02:44 Dose: 40 mg Furosemide (Lasix) Confirm Administered Dose 40 mg .ROUTE .STK-MED ONE Stop: 08/20/16 02:46 Last Admin: 08/20/16 02:58 Dose: Not Given Levofloxacin/Dextrose 500 mg/ (Premix) 100 mls @ 100 mls/hr IV ONETIME ONE Stop: 08/20/16 04:05 Last Admin: 08/20/16 03:46 Dose: 100 mls/hr Furosemide 100 mg/ Sodium (Chloride) 100 mls @ 5 mls/hr IV TITRATE PETER PRN Reason: Protocol Last Infusion: 08/21/16 06:07 Dose: 0 mls/hr Methylprednisolone Sodium Succinate (Solu-Medrol) 125 mg IVPUSH ONETIME ONE Stop: 08/20/16 01:42 Last Admin: 08/20/16 01:45 Dose: 125 mg - Exam General: cooperative, no acute distress HEENT: Pupils equal, Pupils reactive, Mucous membr. moist/pink, Other (Obese) Neck: supple, trachea midline, no JVD, other (short and thick) Abdomen: bowel sounds present, soft, no tenderness, no distension, other (Obese) (Male) Exam: Deferred Back Exam: Normal Inspection, Decreased Range of Motion Extremities: normal pulses, no tenderness/swelling, no clubbing, edema, other ( skin hyperpigmentation) Peripheral Pulses: 1+: Dorsalis Pedis (L), Dorsalis Pedis (R) Skin: warm, dry, intact Neurological: no new focal deficit Psy/Mental Status: alert, normal affect, normal mood - Problem List Review Problem List Initiated/Reviewed/Updated: Yes - My Orders Last 24 Hours: My Active Orders 08/20/16 21:00 Insulin NPH/Insulin Reg,Human [NovoLIN 70-30] 14 unit SUBCUT BEDTIME Simvastatin [Zocor] 40 mg PO BEDTIME 08/20/16 23:00 Ziprasidone HCl [Geodon] 20 mg PO BEDTIME PRN 08/20/16 23:07 Haloperidol Lactate [Haldol] 0.25 mg IVPUSH Q6H PRN 08/21/16 07:20 KUB [Abdomen 1V Flat] [CR] Routine 08/21/16 07:40 Morphine 1 mg IVPUSH Q2H PRN 08/21/16 09:00 Enoxaparin [Lovenox] 100 mg SUBCUT Q24H 08/21/16 09:21 Communication Order [RC] STAT 08/21/16 10:47 RT Incentive Spirometry [RC] ASDIRECTED 08/21/16 10:52 Code Status [Resuscitation Status] Routine 08/21/16 11:00 Azithromycin [Zithromax] 500 mg Sodium Chloride 0.9% [Normal Saline] 250 ml IV Q24H 08/21/16 12:00 Turn, Cough, Deep Breathe [RC] Q2HWA cefTRIAXone [Rocephin] 1 gm Sodium Chloride 0.9% [Normal Saline] 100 ml IV Q24H 08/22/16 05:11 BASIC METABOLIC PANEL,BMP [CHEM] AM CBC WITH AUTO DIFF [HEME] AM CRP [C-REACTIVE PROTEIN] [CHEM] AM MAGNESIUM [CHEM] AM 08/23/16 05:11 BASIC METABOLIC PANEL,BMP [CHEM] AM CBC WITH AUTO DIFF [HEME] AM CRP [C-REACTIVE PROTEIN] [CHEM] AM MAGNESIUM [CHEM] AM 08/24/16 05:11 BASIC METABOLIC PANEL,BMP [CHEM] AM CBC WITH AUTO DIFF [HEME] AM CRP [C-REACTIVE PROTEIN] [CHEM] AM MAGNESIUM [CHEM] AM 08/25/16 05:11 CRP [C-REACTIVE PROTEIN] [CHEM] AM MAGNESIUM [CHEM] AM - Plan Plan:: Assessment/Plan: Acute: NSTEMI - Troponin 1.30---> 27.043 ---> 36.23 - ACS protocol with lovenox with pharmacy monitoring due to renal failure - Received Lovenox SubQ in ED x1 ; pharmacy to monitor and start NSTEMI - May not benefit with PCI due to CKD Acute Pulmonary Congestion - BNP 485 ---> 2144 - CXR shows chest congestion - Likely due to NSTEMI - Has a hx/o HF with unknown EF - Received diuretics in ED - 2D echo: completed awaiting final report Respiratory Failure - Risk factors: MERCED, CO2 Retainer, COPD,HF, NSTEMI and Obesity - Unclear if he is compliant with his CPAP - He was switch to CPAP, he had a rough night last night - After talking to family this morning, they elected for him to be DNR/DNI Respiratory Acidosis - LA is 2.4, most likely got worse since he kept pulling off his CPAP (non- compliant) - This is hypoxemia not due to hypo-perfusion, vitals is fairly stable - O2 sat of 76% on RA when [facility] found [facility] - Continue to monitor - Continue BIPAP Elevated D-Dimer - Maybe falsely elevated due to Pulmonary Congestion and CKD - CTA is contraindicated due to CKD - Duplex U/S for Lower extremity was negative - V/Q scan: low probability of PE - Wells score is 1.5 Low probability of PE Leukocytocis - WBC is 17.10 ---> 25.28 - Likely 2/2 MERCED and Physiologic Stress - No signs of systemic infection - He is afebrile - Started IV Azith/Rocephin daily - Will continue to monitor Polycythemia - Hgb is 20.9 ---> 19.1 - This is likely 2/2 MERCED and COPD Chronic: HLD DM2 COPD CO2 Retention CKD Stage 3-4 Gout MOSER MERCED on CPAP Chronic Constipation HF with Unknown EF Peripheral Neuropathy Cerebral Vascular Disease Hx/o Chronic Falls and Morbid Obesity Plan: Patient is more worse than yesterday Routine AM Labs Continue ACS protocol Resume Home Meds AHA/DM2 and low salt diet Continue PT/OT/RT SW/CM for d/c planning Code status: DNR/DNI Prognosis critical-serious Spoke to children and again told them about his current poor prognosis. They finally agreed to change his code status to DNR/DNI.
[2016-08-21] MEDS ORDERED: cefTRIAXone 1 GM in Sodium Chloride 0.9% 100 ML IV SCH (12:00)
[2016-08-21 13:03] VITALS: BP 112/77
--- NOTE | 2016-08-21 14:21 | PCM.SN ---
- Free Text/Narrative Note: Nurse informed me Mr. Sow just at about 1400. He was restless and combative with staff. He was telling them to 'let me go, let me go". His nurse was getting ready to get some meds to help him breath better and get comfortable, but when she came back to his room, patient was no longer breathing and unresponsive. I immediately came to re-assess him, he was w/o heart beat and radial pulse. His chest was flat and not moving up or down. From there I notified his daughter Kiki to come immediately.
--- NOTE | 2016-08-21 14:50 | PCM.DCSUM1 ---
Discharge Summary - Hospital Course Brief History: his is an 86 yo elderly white male with past medical hx/o DM2, CKD with Unknown Stage, Gout, MOSER, Chronic Constipation, CHF with Unknown EF, HLD, Peripheral Neuropathy, COPD, Cerebral Vascular Disease, Hx/o Chronic Falls , CO2 Retention, MERCED on CPA and Morbid Obesity who was brought to ED for evaluation after he fell out of bed and was found to have low O2 sat at 76% on RA associated with difficulty breathing, malignant hypertension with a documented BP of 180/110 mmHg and an initial blood glucose of 145. He was admitted primarily for medical management of NSTEMI, Respiratory Failure and CHF. - Discharge Data Discharge Date: 08/21/16 Discharge Disposition: 20 Condition: Undetermined - Patient Summary/Data Operative Procedure(s) Performed: None Complications: Consults: Consultations 08/20/16 06:46 Consult to Case Management [CONS] Routine Consult to Advisor To Command In Combat [CONS] Routine Consult to Spiritual Care [CONS] Routine OT Evaluation and Treatment [CONS] Routine PT Evaluation and Treatment [CONS] Routine Respiratory Care Assess and Treatment [CONS] Routine 08/20/16 07:04 Consult to Diabetic Nurse Specialist [CONS] Routine Consult to Dietary [Consult to Transaction Manager] [CONS] Routine Hospital Course: Patient was admitted for multiple issues with concerns primarily for acute cardiac and lung disease. He was treated appropriately but patient was giving signs of further decline in his overall health. He had a very rough time last night, he was restless and just could not get comfortable. This morning his labs were way worse and his telemetry were spitting out frequent abnormal rhythms. His urine output also started to get worse. His family was warned about imminent . After my conversation with his family, they decided Vadim be DNR/DNI. At about 1400 today, his nurse found him at beside unresponsive and not breathing. I was notified immediately to examine him and indeed he was gone. His family was notified immediately about his passing. His body will be released to the appropriate services. - Discharge Plan Home Medications: Home Meds Allopurinol [Zyloprim] 300 mg PO DAILY 08/20/16 [History] Aspirin [Adult Low Dose Aspirin EC] 81 mg PO DAILY 08/20/16 [History] Calcitriol [Rocaltrol] 0.25 mcg PO DAILY 08/20/16 [History] Canagliflozin [Invokana] 150 mg PO DAILY 08/20/16 [History] Carvedilol [Coreg] 12.5 mg PO BID 08/20/16 [History] Cholecalciferol (Vitamin D3) [Vitamin D3] 1,000 units PO DAILY 08/20/16 [History ] Finasteride [Proscar] 5 mg PO DAILY 08/20/16 [History] Furosemide [Lasix] 40 mg PO DAILY 08/20/16 [History] Insulin NPH/Insulin Reg,Human [HumuLIN 70-30 Pen] 14 units SUBCUT BEDTIME [History] Insulin NPH/Insulin Reg,Human [HumuLIN 70-30 Pen] 22 units SUBCUT QAM 08/20/16 [ History] Losartan [Cozaar] 50 mg PO DAILY 08/20/16 [History] Simvastatin 40 mg PO DAILY 08/20/16 [History] Patient Handouts: Hypoxemia, Heart Failure, [id number] Referrals: Marcos Martinez MD [Primary Care Provider] - - Discharge Summary/Plan Comment DC Time >30 min.: No Discharge Summary/Plan Comment: - General Info Date of Service: 08/21/16 Admission Dx/Problem (Free Text: Admission Diagnosis/Problem Admission Diagnosis/Problem Respiratory distress Subjective Update: Follow Up - Review of Systems Systems Review Comment: Patient - Patient Data Vitals - Most Recent: Last Vital Signs Temp 36.6 C 08/21/16 12:00 Pulse 75 08/21/16 13:03 Resp 26 H 08/21/16 13:03 BP 112/77 08/21/16 13:03 Pulse Ox 97 08/21/16 13:03 Weight - Most Recent: 104.9 kg I&O - Last 24 hours: Intake & Output 08/20/16 08/21/16 08/21/16 22:59 06:59 14:59 Intake Total 235 45 480 Output Total 150 342 325 Balance 85 -297 155 Lab Results - Last 24 hrs: Laboratory Results - last 24 hr 08/20/16 08/21/16 08/21/16 Range/Units 22:25 04:10 04:20 WBC 25.28 H (4.23-9.07) K/mm3 RBC 6.69 H (4.63-6.08) M/mm3 Hgb 19.1 H (13.7-17.5) gm/L Hct 64.6 H (40.1-51.0) % MCV 89.8 (79.0-92.2) fl MCH 28.6 (25.7-32.2) pg MCHC 31.8 L (32.2-35.5) g/dl RDW Std Deviation 57.5 H (35.1-43.9) fL Plt Count 134 L (163-337) K/mm3 MPV 10.2 (9.4-12.3) fl Neut % (Auto) 88.9 H (34.0-67.9) % Lymph % (Auto) 5.7 L (21.8-53.1) % [place] % (Auto) 4.8 L (5.3-12.2) % Eos % (Auto) 0 L (0.8-7.0) Baso % (Auto) 0.1 (0.1-1.2) % Neut # (Auto) 22.47 H (1.78-5.38) K/mm3 Lymph # (Auto) 1.45 (1.32-3.57) K/mm3 [place] # (Auto) 1.21 H (0.30-0.82) K/mm3 Eos # (Auto) 0.00 L (0.04-0.54) K/mm3 Baso # (Auto) 0.02 (0.01-0.08) K/mm3 Manual Slide Review Abnormal smear Puncture Site Rt radial ABG pH 7.30 L (7.35-7.45) ABG pCO2 49.2 H (35.0-45.0) mmHg ABG pO2 47.0 L (80.0-100.0) mmHg ABG HCO3 23.4 (22.0-26.0) meq/L ABG O2 Saturation 81.9 L (96.0-97.0) % ABG Base Excess -3.5 L (-2-2.0) A-a Gradient 173 mmHg O2 Delivery Device Cannula Oxygen Flow Rate 6.0 FiO2 100.00 (21.00-100.00) % Sodium 140 (136-145) mEq/L Potassium 5.0 (3.5-5.1) mEq/L Chloride 105 (98-107) mEq/L Carbon Dioxide 25 (21-32) mEq/L Anion Gap 15.0 (5-15) BUN 61 H (7-18) mg/dL Creatinine 2.6 H (0.7-1.3) mg/dL Est Cr Clr Drug Dosing 15.75 mL/min Estimated GFR (MDRD) 24 (>60) mL/min BUN/Creatinine Ratio 23.5 H (14-18) Glucose 195 H (83-115) mg/dL Calcium 9.2 (8.5-10.1) mg/dL Magnesium 2.3 (1.8-2.4) mg/dl Troponin I 36.324 H* (0.00-0.056) ng/mL C-Reactive Protein (<1.0) mg/dL B-Natriuretic Peptide (0-100) pg/mL 08/21/16 08/21/16 Range/Units 04:20 05:20 WBC (4.23-9.07) K/mm3 RBC (4.63-6.08) M/mm3 Hgb (13.7-17.5) gm/L Hct (40.1-51.0) % MCV (79.0-92.2) fl MCH (25.7-32.2) pg MCHC (32.2-35.5) g/dl RDW Std Deviation (35.1-43.9) fL Plt Count (163-337) K/mm3 MPV (9.4-12.3) fl Neut % (Auto) (34.0-67.9) % Lymph % (Auto) (21.8-53.1) % [place] % (Auto) (5.3-12.2) % Eos % (Auto) (0.8-7.0) Baso % (Auto) (0.1-1.2) % Neut # (Auto) (1.78-5.38) K/mm3 Lymph # (Auto) (1.32-3.57) K/mm3 [place] # (Auto) (0.30-0.82) K/mm3 Eos # (Auto) (0.04-0.54) K/mm3 Baso # (Auto) (0.01-0.08) K/mm3 Manual Slide Review Puncture Site ABG pH (7.35-7.45) ABG pCO2 (35.0-45.0) mmHg ABG pO2 (80.0-100.0) mmHg ABG HCO3 (22.0-26.0) meq/L ABG O2 Saturation (96.0-97.0) % ABG Base Excess (-2-2.0) A-a Gradient mmHg O2 Delivery Device Oxygen Flow Rate FiO2 (21.00-100.00) % Sodium (136-145) mEq/L Potassium (3.5-5.1) mEq/L Chloride (98-107) mEq/L Carbon Dioxide (21-32) mEq/L Anion Gap (5-15) BUN (7-18) mg/dL Creatinine (0.7-1.3) mg/dL Est Cr Clr Drug Dosing mL/min Estimated GFR (MDRD) (>60) mL/min BUN/Creatinine Ratio (14-18) Glucose (83-115) mg/dL Calcium (8.5-10.1) mg/dL Magnesium (1.8-2.4) mg/dl Troponin I (0.00-0.056) ng/mL C-Reactive Protein 23.2 H* (<1.0) mg/dL B-Natriuretic Peptide 2144 H (0-100) pg/mL Med Orders - Current: Current Medications Acetaminophen (Tylenol) 650 mg PO Q4H PRN PRN Reason: Pain (Mild 1-3)/fever Hydrocodone Bitart/Acetaminophen (Kennard 325-5 Mg) 1 tab PO Q4H PRN PRN Reason: Pain (moderate 4-6) Albuterol (Proventil Neb Soln) 2.5 mg NEB Q4HRRT [facility] Last Admin: 08/21/16 13:56 Dose: 2.5 mg Aspirin (Halfprin) 162 mg PO DAILY [facility] Last Admin: 08/21/16 09:19 Dose: Not Given Bisacodyl (Dulcolax) 5 mg PO DAILY PRN PRN Reason: Constipation Calcitriol (Rocaltrol) 0.25 mcg PO DAILY [facility] Last Admin: 08/21/16 10:12 Dose: Not Given Carvedilol (Coreg) 12.5 mg PO BID [facility] Last Admin: 08/21/16 09:19 Dose: Not Given Cholecalciferol (Vitamin D3) 1,000 units PO DAILY [facility] Last Admin: 08/21/16 09:20 Dose: Not Given Docusate Sodium (Colace) 100 mg PO BID PRN PRN Reason: Constipation Enoxaparin Sodium (Lovenox) 100 mg SUBCUT Q24H [facility] Last Admin: 08/21/16 10:11 Dose: 100 mg Finasteride (Proscar) 5 mg PO DAILY [facility] Last Admin: 08/21/16 09:20 Dose: Not Given Furosemide (Lasix) 40 mg PO DAILY [facility] Last Admin: 08/21/16 09:19 Dose: Not Given Haloperidol Lactate (Haldol) 0.25 mg IVPUSH Q6H PRN PRN Reason: Agitation Hydromorphone HCl (Dilaudid) 0.25 mg IVPUSH Q2H PRN PRN Reason: Pain (severe 7-10) Promethazine HCl 12.5 mg/ (Sodium Chloride) 50.5 mls @ 100 mls/hr IV Q6H PRN PRN Reason: Nausea/Vomiting Azithromycin 500 mg/ Sodium (Chloride) 250 mls @ 250 mls/hr IV Q24H [facility] Last Admin: 08/21/16 11:56 Dose: 125 mls/hr Ceftriaxone Sodium 1 gm/ (Sodium Chloride) 100 mls @ 200 mls/hr IV Q24H [facility] Last Admin: 08/21/16 11:56 Dose: 50 mls/hr Insulin Human Isoph/Insulin Regular (Novolin 70-30) 22 unit SUBCUT QAM [facility] Last Admin: 08/21/16 09:18 Dose: Not Given Insulin Human Isoph/Insulin Regular (Novolin 70-30) 14 unit SUBCUT BEDTIME [facility] Last Admin: 08/20/16 20:24 Dose: Not Given Lorazepam (Ativan) 0.5 mg IV Q6H PRN PRN Reason: Anxiety Last Admin: 08/20/16 20:25 Dose: 0.5 mg Losartan Potassium (Cozaar) 50 mg PO DAILY [facility] Last Admin: 08/21/16 09:19 Dose: Not Given Morphine Sulfate (Morphine) 1 mg IVPUSH Q2H PRN PRN Reason: restlessness Last Admin: 08/21/16 11:50 Dose: 1 mg Ondansetron HCl (Zofran) 4 mg IV Q6H PRN PRN Reason: Nausea/Vomiting Canagliflozin [ (Invokana] 150 Mg) 0 each PO DAILY [facility] Last Admin: 08/21/16 09:20 Dose: Not Given Polyethylene Glycol (Miralax) 17 gm PO DAILY PRN PRN Reason: Constipation Senna/Docusate Sodium (Senna Plus) 1 tab PO BID PRN PRN Reason: Constipation Simvastatin (Zocor) 40 mg PO BEDTIME [facility] Last Admin: 08/20/16 20:24 Dose: Not Given Temazepam (Restoril) 15 mg PO BEDTIME PRN PRN Reason: Sleep Ziprasidone (Geodon) 20 mg PO BEDTIME PRN PRN Reason: Agitation Discontinued Medications Albuterol (Proventil Neb Soln) 2.5 mg NEB ONETIME STA Stop: 08/20/16 02:15 Last Admin: 08/20/16 02:17 Dose: 2.5 mg Albuterol (Proventil Neb Soln) Confirm Administered Dose 2.5 mg .ROUTE .STK-MED ONE Stop: 08/20/16 02:19 Last Admin: 08/20/16 03:01 Dose: Not Given Albuterol (Proventil) 2.5 mg NEB Q4HRRT [facility] Last Admin: 08/20/16 06:05 Dose: 2.5 mg Albuterol/Ipratropium (Duoneb 3.0-0.5 Mg/3 Ml) 3 ml NEB ONETIME ONE Stop: 08/20/16 01:41 Last Admin: 08/20/16 01:50 Dose: 3 ml Allopurinol (Zyloprim) 300 mg PO DAILY [facility] Aspirin (Halfprin) 81 mg PO DAILY [facility] Bumetanide (Bumex) 1 mg IVPUSH ONETIME ONE Stop: 08/20/16 23:17 Last Admin: 08/21/16 00:49 Dose: 1 mg Diphenhydramine HCl (Benadryl) 50 mg IVPUSH ONETIME ONE Stop: 08/20/16 16:31 Last Admin: 08/20/16 16:38 Dose: 50 mg Enoxaparin Sodium (Lovenox) 100 mg SUBCUT ONETIME ONE Stop: 08/20/16 02:53 Last Admin: 08/20/16 03:01 Dose: 100 mg Enoxaparin Sodium (Lovenox) 40 mg SUBCUT Q12HR PETER Enoxaparin Sodium (Lovenox) 100 mg SUBCUT Q24H [facility] Furosemide (Lasix) 40 mg IVPUSH NOW ONE Stop: 08/20/16 02:43 Last Admin: 08/20/16 02:44 Dose: 40 mg Furosemide (Lasix) Confirm Administered Dose 40 mg .ROUTE .STK-MED ONE Stop: 08/20/16 02:46 Last Admin: 08/20/16 02:58 Dose: Not Given Levofloxacin/Dextrose 500 mg/ (Premix) 100 mls @ 100 mls/hr IV ONETIME ONE Stop: 08/20/16 04:05 Last Admin: 08/20/16 03:46 Dose: 100 mls/hr Furosemide 100 mg/ Sodium (Chloride) 100 mls @ 5 mls/hr IV TITRATE PETER PRN Reason: Protocol Last Infusion: 08/21/16 06:07 Dose: 0 mls/hr Methylprednisolone Sodium Succinate (Solu-Medrol) 125 mg IVPUSH ONETIME ONE Stop: 08/20/16 01:42 Last Admin: 08/20/16 01:45 Dose: 125 mg - Exam Physical Findings Comments:: Patient *Q Meaningful Use (DIS) - VTE *Q VTE Criteria *Q: - Stroke *Q Stroke Criteria *Q: - AMI *Q AMI Criteria *Q:
--- NOTE | 2016-08-21 18:04 | CR ---
Abdomen: Supine view of the abdomen was obtained. Comparison: No previous abdominal x-ray. Bowel gas pattern appears normal. No abnormal calcifications or soft tissue abnormality is seen. Degenerative change is scattered within the spine. Impression: 1. Nonspecific supine abdominal x-ray as described above. Diagnostic code #2 I agree with preliminary report issued by [facility] (report finalized on 08/21/16, 8:45 AM Central Time)
== END 2016-08-21 16:35 | disposition expired ==
LOC: JD.ED 01:16 → JD.ICU 04:27
PROVIDERS: ADMIT Internal Medicine; ATTEND Internal Medicine
DX: R06.00 Dyspnea, unspecified (principal); R09.02 Hypoxemia; I21.4 Non-ST elevation (NSTEMI) myocardial infarction; R74.8 Abnormal levels of other serum enzymes; J96.90 Respiratory failure, unspecified, unspecified whether with hypoxia or hypercapnia; E87.2 Acidosis; I13.0 Hypertensive heart and chronic kidney disease with heart failure and stage 1 through stage 4 chronic kidney disease, or unspecified chronic kidney disease; N18.9 Chronic kidney disease, unspecified; R09.89 Other specified symptoms and signs involving the circulatory and respiratory systems; R79.1 Abnormal coagulation profile; J44.9 Chronic obstructive pulmonary disease, unspecified; D72.829 Elevated white blood cell count, unspecified; D75.1 Secondary polycythemia; E78.5 Hyperlipidemia, unspecified; I50.9 Heart failure, unspecified; E21.3 Hyperparathyroidism, unspecified; N18.3 Chronic kidney disease, stage 3 (moderate); E11.22 Type 2 diabetes mellitus with diabetic chronic kidney disease; E11.42 Type 2 diabetes mellitus with diabetic polyneuropathy; Z79.4 Long term (current) use of insulin; Z87.891 Personal history of nicotine dependence; M10.9 Gout, unspecified; G47.33 Obstructive sleep apnea (adult) (pediatric); K59.09 Other constipation; Z91.81 History of falling; E66.01 Morbid (severe) obesity due to excess calories; Z68.30 Body mass index [BMI] 30.0-30.9, adult; R45.1 Restlessness and agitation; Z66 Do not resuscitate; W19.XXXA Unspecified fall, initial encounter; E78.00 Pure hypercholesterolemia, unspecified; I67.9 Cerebrovascular disease, unspecified; N40.0 Benign prostatic hyperplasia without lower urinary tract symptoms; Z79.82 Long term (current) use of aspirin; Z79.899 Other long term (current) drug therapy
CPT/HCPCS: 36415; 36600 ×2; 51702; 71010; 80053; 81001; 82803 ×2; 83605; 83735; 83880; 84484; 85025; 85379; 85610; 85730; 87040 ×2; 93005; 94640; 94660; 94664; 96365; 96372; 96374; 96375; 99285; J1650; J1940; J1956; J2930; 74000; 74000-26; 78582; 78582-26; 80048; 82553; 82962; 83036; 84132; 84439; 84443; 86140; 87641; 93306; 93970; 93970-26; A9270-GY; A9540; J0456; J0696; J1200; J1815-GY; J2060; J2270; J7030; J7050